=== PATIENT | male | born 1985 ===

== ENCOUNTER 2021-06-10 12:29 | Outpatient (CLI) | payer OTHER, SELFPAY ==
[2021-06-10 14:05] LABS: SARS-CoV-2 Ag Positive (Negative)
== END 2021-06-10 12:30 | disposition home or self-care (01) ==
LOC: CHSLAB 12:35
PROVIDERS: PCP Family Medicine; Visit Provider Physician Assistant
DX: U07.1 COVID-19 (principal)
CPT/HCPCS: 87426; C9803

== ENCOUNTER 2021-06-21 12:49 | Outpatient (CLI) | payer OTHER, SELFPAY ==
[2021-06-21 14:48] LABS: SARS-CoV-2 RNA PCR Negative (Negative)
== END 2021-06-21 12:50 | disposition home or self-care (01) ==
LOC: CHSLAB 12:55
PROVIDERS: PCP Family Medicine; Visit Provider Physician Assistant
DX: Z09 Encounter for follow-up examination after completed treatment for conditions other than malignant neoplasm (principal); Z86.16 Personal history of COVID-19
CPT/HCPCS: C9803; U0003; U0005